=== PATIENT | female | born 1985 | race Caucasian/White ===

== ENCOUNTER 2016-11-10 16:47 | Outpatient (CLI) | payer MEDICAID ==
[~2016-11-10] VITALS: Ht 157.5 cm; Wt 79.9 kg
[2016-11-10 16:50] VITALS: Ht 157.5 cm; Wt 79.9 kg
[2016-11-10 16:51] VITALS: BP 116/58
[2016-11-10] MEDS ORDERED: PREN1TAB17 PO (16:58)
[2016-11-10] MEDS ORDERED: LACTATED RINGER'S 1,000 ML IV ONE (18:00)
[2016-11-10] MEDS ORDERED: TERBUTALINE 1 MG/ML INJ SC ONE (18:00)
--- NOTE | 2016-11-10 18:24 | NSTRPT ---
NST Information Datetime Report Generated by CPN: 11/10/2016 18:24 Datetime: 11/10/2016 14:22 NST Information EGA: 34.6 Test Number: 4 Time on Monitor: 11/10/2016 15:06 Time off Monitor: 11/10/2016 15:51 NST Duration (Min): 45 Reason for NST: Low RENAY Test and Monitor Explained: Monitor Explained; Test Explained; Verbalized Understanding Pulse: 106 Resp: 17 SBP: 113 DBP: 68 Test Evaluation NST Interventions: Reposition Patient Patient States Movement: Present Contraction Frequency: Q4-12min, mild FHR Baseline : 130 Variability: Moderate 6-25bpm Accelerations: 15X15 Decelerations: None FHR Category: Category I NST Results: Reactive Comments: To u/s, SHEYLA 15.0cm, cephalic Dr. Phoenix called and informed of contraction frequency. Orders received to send pt to OB Triage now. Report called to Yamileth OB abstractor. [id number] informed of plan of care, instructed pt to go to OB Triage now. Pt verbalizes understandi ng and states she will go to OB Triage now. Discussed kick counts, follow-up NST/SHEYLA appointme nt given. Pt verbalizes understanding and denies questions. (Annotations: Data stored by N on beha lf of user) Electronically Signed By E-Signature: with User ID: [id number] Datetime: 11/05/2016 10:00 NST Information EGA: 34.1 NST Duration (Min): 29 Datetime: 10/30/2016 09:47 NST Information EGA: 33.2 NST Duration (Min): 55 Datetime: 10/27/2016 14:33 NST Information EGA: 32.6 Datetime: 10/27/2016 14:27 NST Duration (Min): 24
--- NOTE | 2016-11-10 22:05 | TRIAGE ---
OB Triage Datetime Report Generated by CPN: 11/10/2016 22:05 Datetime: 11/10/2016 19:58 Stage of : OB Triage Datetime: 11/10/2016 19:50 Stage of : OB Triage Datetime: 11/10/2016 19:42 Monitor Mode: Palpation Resting Tone [place]erv[place]: Relaxed Pain Assessment Pain Scale: 1 Pain Goal: 0 Pain Assessment Comments: PT. DENIES FEELING UC'S Datetime: 11/10/2016 19:30 Labor Evaluation Frequency: X2 Monitor Mode: External Duration (sec)2399: 50-60 Pattern: Normal: <= 5 Contractions in 10 Minutes Heart Rate FHR Baseline Rate: 135 Monitor Mode: External US FHR Baseline Changes: No Baseline Change Variability: Moderate 6-25 bpm Accelerations: 15X15 Datetime: 11/10/2016 19:25 Monitor Mode: Palpation Resting Tone Min[place]: Relaxed Monitor Mode: External US Datetime: 11/10/2016 19:10 Assessment Type: Triage Maternal Assessment Level of Consciousness: Fully Conscious Headache: Denies Blurred Vision: No Respiratory Effort: Unlabored; Regular Rhythm; Equal Expansion Nausea/Vomiting: Denies RUQ Epigastric Pain: Denies Lower Extremities Edema: None Degree: None Upper Extremities Edema: None Degree: None Facial Edema: None Fall Risk Assessment History of Falling: (0) No Secondary Diagnosis: (0) No Ambulatory Aid: (0) Bedrest/Nurse Assist IV Therapy: (20) Yes Gait: (0) Normal/Bedrest/Immobile Mental Status: (0) Oriented to Own Ability Fall Score: 20 Fall Risk Score Definition: No Risk: No action required Datetime: 11/10/2016 18:43 Stage of : OB Triage Labor Evaluation Frequency: X1 Monitor Mode: External Duration (sec)2399: 30-40 Pattern: Normal: <= 5 Contractions in 10 Minutes Resting Tone Minerva: Relaxed Heart Rate FHR Baseline Rate: 135 Monitor Mode: External US Variability: Moderate 6-25 bpm Accelerations: 15X15 Decelerations: None Category: Category I Pain Presence: None/Denies Pain Type: N/A Datetime: 11/10/2016 18:17 Monitor Mode: External US Datetime: 11/10/2016 17:55 Vaginal Exam Dilatation (cms): 0.0 Effacement (%): 50 Station: -3 Exam By: Lawanda GIVENS Datetime: 11/10/2016 17:00 Stage of : OB Triage Assessment Type: Triage Maternal Assessment Level of Consciousness: Fully Conscious DTR's/Clonus: DTRs 2+; No Clonus Headache: Denies Blurred Vision: No Respiratory Effort: Unlabored; Regular Rhythm; Equal Expansion Breath Sounds, Left: Clear and Equal Breath Sounds, Right: Clear and Equal Nausea/Vomiting: Denies RUQ Epigastric Pain: Denies Lower Extremities Edema: None Degree: None Upper Extremities Edema: None Degree: None Facial Edema: None Temperature Route: Oral Fall Risk Assessment History of Falling: (0) No Secondary Diagnosis: (0) No Ambulatory Aid: (0) Bedrest/Nurse Assist IV Therapy: (0) No Gait: (0) Normal/Bedrest/Immobile Mental Status: (0) Oriented to Own Ability Fall Score: 0 Fall Risk Score Definition: No Risk: No action required Monitor Mode: External Heart Rate FHR Baseline Rate: 145 Monitor Mode: External US Variability: Moderate 6-25 bpm Accelerations: 15X15 Decelerations: None Category: Category I Pain Assessment Pain Scale: 0 Pain Presence: None/Denies Pain Type: N/A Datetime: 11/10/2016 16:59 Time of Arrival: 11/10/2016 16:45 EGA: 34.6 Arrived By: Ambulatory Arrived From: Dr. Marcial Chief Complaint: SENT FROM NST FOR UC'S Movement: Present Contractions: Irregular Rupture of Membranes: Denies Vaginal Bleeding: None Vaginal Discharge: Denies Recent Sexual Intercouse: Denies Abdominal Trauma: Not Applicable Patient Complaints: Contractions; Other Time Provider Notified: 11/10/2016 17:18 Provider Notified: Dr. Phoenix Initial Plan: EFMX2, CALL
--- NOTE | 2016-11-10 22:21 | PN ---
Triage Information Date/Time Weeks of Gestation 34w6d : 4 Para: 3 Diabetes: none Hypertention: none Additional information sent from NST room for occasional uterine contractions Objective Vital Signs Date Time Temp Pulse Resp B/P Pulse Ox O2 Delivery O2 Flow Rate FiO2 11/10/16 16:51 99.2 116/58 Contractions: >10 Minutes Apart Exam VE closed long -3 reexam in 2hrs no change Results/Medications Medications IV hydration x1 terbutaline Assessment/Plan IUP 34w6d NIL discharge home with routine labor instructions next nst on wednesday MIKE PEPE MD Nov 10, 2016 22:21
== END 2016-11-10 19:58 | disposition home or self-care (01) ==
LOC: L-D 16:47 → OBT 16:47
PROVIDERS: ATTEND Obstetrics & Gynecology
DX: O26.893 Other specified pregnancy related conditions, third trimester (principal); R10.9 Unspecified abdominal pain; Z3A.34 34 weeks gestation of pregnancy
CPT/HCPCS: 96360; 96361; 96372; J7120; Z7500; G0463; J3105